=== PATIENT | male | born 1980 | race African-American/Black ===

== ENCOUNTER 2021-01-28 09:15 | Emergency (ER) | payer MEDICAID ==
[~2021-01-28] VITALS: Ht 180.3 cm; Wt 87.0 kg
[2021-01-28] MEDS ORDERED: KETOROLAC 15MG/ML VIAL IV ONE (09:45)
[2021-01-28] MEDS ORDERED: ACETAMINOPHEN 325MG TABLET PO ONE (09:45)
[2021-01-28] MEDS ORDERED: LIDOCAINE 5% PATCH TOP SCH (09:45)
[2021-01-28] MEDS ORDERED: SODIUM CHLORIDE 0.9% 1000ML BAG (SEPSIS BOLUS) IV ONE (09:45)
[2021-01-28] MEDS ORDERED: DEXAMETHASONE 10 MG/ML VIAL IV ONE (09:45)
[2021-01-28 10:25] LABS: BASOPHILS % 0.6 % (0.0-2.0); EOSINOPHILS % 0.5 % (0.0-5.0); HEMATOCRIT. 37.5 % (42.0-52.0); HEMOGLOBIN. 13.1 g/dL (14.0-18.0); LYMPHOCYTES % 19.6 % (20.0-50.0); MEAN CORPUSCULAR HEMOGLOBIN 30.5 pg (28.0-32.0); MEAN CORPUSCULAR VOLUME 87.3 fL (80.0-94.0); MEAN PLATELET VOLUME 8.5 fl (7.4-10.4); MONOCYTES % 12.7 % (2.0-8.0); NEUTROPHILS % 66.6 % (40.0-76.0); PLATELET 195 x1000/uL (130-400); RED CELL DISTRIBUTION WIDTH 13.6 % (11.6-14.6)
[2021-01-28 10:30] LABS: CHLORIDE 108 mEq/L (98-107)
[2021-01-28 10:35] LABS: PROTHROMBIN TIME 10.9 sec (9.6-11.0)
[2021-01-28] MEDS ORDERED: IOHEXOL-300 100 ML BOTTLE ONE (11:37)
[2021-01-28] MEDS ORDERED: IBUP-2029 MT (12:10)
[2021-01-28] MEDS ORDERED: LIDO700A15 TP (12:10)
[2021-01-28 12:20] VITALS: BP 128/66
[2021-01-28 13:02] LABS: CLARITY URINE CLEAR (CLEAR); COLOR URINE YELLOW (YELLOW); KETONES URINE NEGATIVE (NEGATIVE); LEUKOCYTE ESTERASE URINE NEGATIVE (NEGATIVE); NITRITE URINE NEGATIVE (NEGATIVE); OCCULT BLOOD URINE NEGATIVE (NEGATIVE); PROTEIN URINE NEGATIVE (NEGATIVE); SPECIFIC GRAVITY URINE 1.081 (1.005-1.030)
== END 2021-01-28 13:15 | disposition home or self-care (01) ==
LOC: ER 09:15 → CANBEDREQ 16:29
DX: R59.1 Generalized enlarged lymph nodes (principal); M54.2 Cervicalgia; I10 Essential (primary) hypertension; J45.909 Unspecified asthma, uncomplicated; Z13.9 Encounter for screening, unspecified
CPT/HCPCS: 36415; 70491; 71045; 80053; 81003; 83605; 84145; 84484; 85025; 85610; 87040; 87086; 93005; 96361; 96374; 96375; 99285; J1100; J1885; J7030; Q9967

== ENCOUNTER 2025-05-22 12:24 | Emergency (ER) | payer MEDICAID ==
[~2025-05-22] VITALS: Ht 180.3 cm; Wt 82.0 kg
[~2025-05-22 12:24] MED LIST: IBUP-1455 MT; LIDO-53 TP
[2025-05-22 12:34] VITALS: O2SAT 100
[2025-05-22] MEDS ORDERED: APIX5TAB4 PO (17:00)
[2025-05-22] MEDS ORDERED: ACET-2708 MT (17:00)
[2025-05-22 18:07] VITALS: BP 148/94; PULSE 59; RESP 14; TEMP 37.2; O2SAT 100
[2025-05-22] MEDS ORDERED: APIX5TAB MT (18:11)
== END 2025-05-22 18:08 | disposition home or self-care (01) ==
LOC: ER 12:24
DX: I82.459 Acute embolism and thrombosis of unspecified peroneal vein (principal); J45.909 Unspecified asthma, uncomplicated
CPT/HCPCS: 93971; 73610; 73620; 73650; 99284; Z7610 ×2